=== PATIENT | female | born 1960 | race Caucasian/White ===

== ENCOUNTER 2018-01-06 15:37 | Emergency (ER) | payer MEDICARE ==
[~2018-01-06] VITALS: Ht 172.7 cm; Wt 95.5 kg
[~2018-01-06 15:37] MED LIST: HYDR-565 PO; LYR75C PO; METO-539 PO; TOPI25TA15 PO
[2018-01-06 16:05] VITALS: BP 169/97
== END 2018-01-06 18:05 | disposition home or self-care (01) ==
LOC: ER 15:38
DX: S91.351A Open bite, right foot, initial encounter (principal); I10 Essential (primary) hypertension; Z90.710 Acquired absence of both cervix and uterus; Z98.890 Other specified postprocedural states; Z88.0 Allergy status to penicillin; Z88.5 Allergy status to narcotic agent; Z88.8 Allergy status to other drugs, medicaments and biological substances; Z79.899 Other long term (current) drug therapy; W59.01XA Bitten by nonvenomous lizards, initial encounter; Y93.89 Activity, other specified; Y92.89 Other specified places as the place of occurrence of the external cause; Y99.8 Other external cause status
CPT/HCPCS: 99281